=== PATIENT | female | born 1980 | race Asian ===

== ENCOUNTER → 2024-01-25 06:57 | Outpatient (REF) | payer BC, SELFPAY | LOC: RAD 06:57 | PROVIDERS: ATTENDING PHYSICIAN Surgery; FAMILY PHYSICIAN Family Medicine | DX: C18.7 Malignant neoplasm of sigmoid colon (principal) | CPT/HCPCS: 71260; 74177; Q9967 ==

== ENCOUNTER → 2024-01-31 15:05 | Outpatient (REF) | payer BC, SELFPAY | LOC: CLAB 15:05 | PROVIDERS: ATTENDING PHYSICIAN Surgery; FAMILY PHYSICIAN Family Medicine | DX: C18.7 Malignant neoplasm of sigmoid colon (principal) | CPT/HCPCS: 88305 ==

== ENCOUNTER 2024-02-09 06:05 | Inpatient (IN) | payer BC, SELFPAY ==
[2024-02-01 12:40] VITALS: BMI 26.7
[2024-02-02 08:59] LABS: Glycohemoglobin (HgbA1c) 5.3 % (4.0-5.6)
[2024-02-09] VITALS (10 sets, daily range): BP systolic 120–142; BP diastolic 71–90; BMI 26.7
[2024-02-09] MEDS: ENTEREG 12 MG PO (06:45)
[2024-02-09] MEDS: TYLENOL 1000 MG PO (06:45)
[2024-02-09] MEDS: HEPARIN 5000 UNITS SC (06:46)
[2024-02-09] MEDS: NORMOSOL-R 1000 IV ×3 (06:46→23:30)
--- NOTE | 2024-02-09 11:49 | W.IMMPOSTOP ---
Addendum entered and electronically signed by Farhad Torres MD 02/09/24 12:04:
KENYON Villegas, assisted
Original Note:
Surgical Immed Post Op Note
-
Primary Surgeon: Oscar Torres MD
Assistants: GEE Hdz & KENYON Mejia
Pre-op Diagnosis: Sigmoid colon cancer
Post-op Diagnosis: Same
Procedure Performed: Robotic sigmoid colon resection with intracorporeal anastomosis
Anesthesia Type: GET
Specimen / Cultures: Sigmoid colon (suture is proximal)
Estimated Blood Loss: 15cc
Complications: None
Operative Findings: No evidence of metastatic disease
Bulky tumor of the sigmoid colon at the Carbon ink
28mm EEA
normal leak test
Patient's updated.
Colon Resection
Colon Resection
Operation performed with curative intent: Yes
Tumor Location: Sigmoid Colon
Sigmoid Resection: Inferior Mesenteric
[2024-02-09] MEDS: DILAUDID 0.25 MG IV (12:28)
[2024-02-09 13:08] LABS: % Basophils 0.1 % (0-2); % Eosinophils 0.1 % (0-6); % Immature Granulocytes 0.5 % (0-0.5); % Lymphocytes 5.2 % (20.5-51.1); % Monocytes 0.8 % (1.7-9.3); % Neutrophils 93.3 % (42.2-75.2); Absolute Immature Granulocytes 0.1 10^3/uL (0-0.05); Absolute Lymphocytes 0.8 10^3/uL (1.2-3.4); Absolute Monocytes 0.1 10^3/uL (0.1-0.6); Absolute Neutrophils 13.5 10^3/uL (1.4-6.5); Hematocrit 40.6 % (37.0-47.0); Hemoglobin 13.2 g/dL (12.0-16.0); Mean Corp Hgb Conc. 32.5 g/dL (33.0-37.0); Nucleated Red Blood Cells % 0 %; Platelet Count 242 10^3/uL (130-400); Red Blood Cell Count 5.49 10^6/uL (4.20-5.40); Red Cell Dist. Width 14.1 % (11.5-14.5); White Blood Cell Count 14.4 10^3/uL (4.8-10.8)
--- NOTE | 2024-02-09 13:12 | PTCARENOTE ---
Patient admitted from [facility] post sigmoid colectomy secondary to colon cancer.The patient is alert and oriented.She rates her pain at a 4 out of 10All 4 incisions are clean and dry without drainage.The patient is in her bed with the call nair in
reach.Vital signs are stable.
[2024-02-09 13:20] LABS: Blood Urea Nitrogen 6 mg/dl (7-17); Calcium 8.4 mg/dl (8.4-10.2); Carbon Dioxide 22 mmol/L (22-30); Chloride 105 mmol/L (98-107); Estimated Creatinine Clearance 111 ml/min; Glucose 122 mg/dl (70-99); Potassium 4.4 mmol/L (3.5-5.1); Sodium 133 mmol/L (135-145); eGFR > 60.00
[2024-02-09] MEDS: TORADOL 15 MG IV ×2 (14:31→21:05)
[2024-02-09] MEDS: TYLENOL 650 MG PO ×2 (14:31→21:06)
[2024-02-09] MEDS: TYLENOL PO ×2 (15:26→23:30)
[2024-02-10] MEDS: TYLENOL 650 MG PO ×4 (02:48→16:28)
[2024-02-10] MEDS: TORADOL 15 MG IV ×3 (02:49→16:29)
[2024-02-10 02:55] VITALS: BP 108/68
[2024-02-10 06:00] VITALS: BMI 26.5
[2024-02-10 07:06] VITALS: BP 119/76
[2024-02-10 07:16] LABS: % Basophils 0.1 % (0-2); % Immature Granulocytes 0.6 % (0-0.5); % Lymphocytes 14.6 % (20.5-51.1); % Monocytes 6.9 % (1.7-9.3); % Neutrophils 77.8 % (42.2-75.2); Absolute Immature Granulocytes 0.1 10^3/uL (0-0.05); Absolute Lymphocytes 2.1 10^3/uL (1.2-3.4); Absolute Neutrophils 10.9 10^3/uL (1.4-6.5); Hematocrit 34.8 % (37.0-47.0); Hemoglobin 11.5 g/dL (12.0-16.0); Mean Corpuscular Hgb 24.5 pg (27.0-31.0); Mean Platelet Volume 10.3 fL (7.4-10.4); Nucleated Red Blood Cells % 0 %; Platelet Count 228 10^3/uL (130-400); Red Cell Dist. Width 14.1 % (11.5-14.5); White Blood Cell Count 14.1 10^3/uL (4.8-10.8)
[2024-02-10 07:34] LABS: Blood Urea Nitrogen 5 mg/dl (7-17); Calcium 8.5 mg/dl (8.4-10.2); Carbon Dioxide 26 mmol/L (22-30); Chloride 104 mmol/L (98-107); Estimated Creatinine Clearance 111 ml/min; Glucose 106 mg/dl (70-99); Potassium 4.4 mmol/L (3.5-5.1); Sodium 133 mmol/L (135-145); eGFR > 60.00
[2024-02-10] MEDS: ENTEREG 12 MG PO (09:30)
[2024-02-10] MEDS: PROTONIX 40 MG PO (09:31)
[2024-02-10] MEDS: NORMOSOL-R IV (09:37)
--- NOTE | 2024-02-10 10:56 | W.PN.CRS1 ---
Today's Communication / Plan
-
Advance diet
D/C polanco
Dispo planning
Assessment/Plan
-
43 y/o female with h/o sigmoid colon ca now POD #1 Robotic sigmoid colon resection with intracorporeal anastomosis
AFVSS
Mild acute anemia likely secondary to expected intraop losses and hemodilution
+Flatus, tolerating clears
--Advance to LRD
--D/C polanco for voiding trial
--Stop IVF
--Lovenox for VTE ppx, SCD's while in bed
--OOB/Ambulate
--Multimodal analgesics
--OR path pending
Discharge later today vs tomorrow pending voiding trial/diet tolerance/pain control
Subjective Data
Procedure
02/09/24 Robotic sigmoid colon resection with intracorporeal anastomosis
Subjective Data
Date of Service: February 10, 2024
Patient seen and examined at bedside with Dr. Torres. Denies n/v. Tolerating clears. Passing flatus. Pain well managed, some soreness to lower abdominal incision.
Objective Data
-
Vital Signs
Temp Pulse Resp BP Pulse Ox
98.5 F 75 18 119/76 99
02/10/24 07:06 02/10/24 07:06 02/10/24 07:06 02/10/24 07:06 02/10/24 07:06
Intake & Output
02/09/24 02/10/24 02/11/24
06:59 06:59 06:59
Intake Total 3080 / 3080
Output Total 2370 / 2370 800 / 800
Balance 710 / 710 -800 / -800
Intake:
Oral fluids 2380 / 2380
IV fluids (Total) 700 / 700
Normosol-R 1,000 ml @ 100 mls/ 50 / 50
hr IV .Q10H KARL Rx#:[id number]
norm 50 / 50
Output:
Urine, Polanco 2370 / 2370 800 / 800
Lab Results
02/10/24 06:44
02/10/24 06:44
Physical Exam
-
General: No Acute Distress
HEENT: Grossly Normal
Abdomen: Soft, Non Distended and Tender (mild to lower incision)
Skin: Warm and Dry
Incision: Clear, Dry, Intact and No Skin Erythema
[2024-02-10 11:29] VITALS: BP 110/74
--- NOTE | 2024-02-10 13:07 | CM ---
Reviewed the chart notes and spoke with the patient at the bedside. The patient resides with her spouse in a two story home with two steps to enter. The patient reports no DME/VN/SNF in the past. The patient confirmed her pharmacy of choice is
the [facility]. The patient anticipates being discharged to home with no needs. The patient's spouse will provide transportation. CM continues to be available to patient/family and is monitoring medical plan for needs at discharge.
Plan: Discharge to home when medically stable.
--- NOTE | 2024-02-10 15:10 | W.DCSUMMARY ---
Discharge Summary
Discharge Data
Date of Admission: 02/09/24
Date of Discharge: 02/10/24
-
Pending Results: No
Hospital Course
This is a 43 yo female with history of sigmoid colon cancer who presented for robotic sigmoid colectomy with intracorporeal anastomosis. She tolerated the procedure well without complication. Diet was able to be advanced post operatively with good
bowel function. Pain was well managed prior to discharge. Surgical pathology is pending with outpatient follow up planned to discuss.
Discharge Plan
-
Patient Disposition: Home (Routine Discharge)
Discharge Diagnosis/Procedures: Robotic sigmoidectomy
Condition: Good
Diet: Low Residue
Activity: No strenuous activity
Additional Activity: No lifting over 10lbs (gallon of milk)
Driving Restrictions: No driving for 1 week
Bathing Restrictions: OK to Shower
Wound Care: Allow glue to naturally fall off. Do not pick at incisions.
Activity Restrictions/Additional Instructions:
Call your surgeon if you develop worsening pain, nausea with vomiting or a fever 100.5
Instructions: Low Fiber Diet
Referrals:
Farhad Torres MD [Active] - 03/01/24 1:00 pm
Edel Jansen MD [Family Provider] -
Prescriptions:
New
acetaminophen 325 mg tablet
650 mg PO Q4HPRN PRN (Reason: mild pain) Qty: 1 0RF
ibuprofen 200 mg tablet
400 - 600 mg PO Q6HPRN PRN (Reason: moderate pain) Qty: 1 0RF
tramadol 50 mg tablet
25 - 50 mg PO Q6HPRN PRN (Reason: severe pain/breakthrough pain) Qty: 15 0RF
Discontinued
metronidazole 500 mg Tablet
500 mg PO .[id number]
Rx Instructions:
Bowel prep
magnesium citrate Solution
150 ml PO DIRECTED
Rx Instructions:
Drink on 02/07/24 for bowel prep
neomycin 500 mg Tablet
1,000 mg PO .[id number]
Rx Instructions:
Bowel prep
Sutab 1.479-0.188- 0.225 gram Tablet
24 tab PO DIRECTED
Rx Instructions:
As directed for bowel prep on 02/08/24
Discharge Orders:
Discharge Patient (As Directed); Ordered 02/10/24
Ordered By: Estrella Alaniz
Discharge Date and Time
Print Language: HAITIAN
[2024-02-10 15:35] VITALS: BP 137/78
== END 2024-02-10 16:46 | disposition home or self-care (01) | DRG 330 ==
LOC: 2 SOUTH 06:05
PROVIDERS: Physician Assistant; ADMITTING PHYSICIAN Surgery; FAMILY PHYSICIAN Family Medicine
PROC: 0DJD8ZZ Inspection of Lower Intestinal Tract, Via Natural or Artificial Opening Endoscopic (ICD-10-PCS; 2024-02-09)
PROC: 4A1BXSH Monitoring of Gastrointestinal Vascular Perfusion using Indocyanine Green Dye, External Approach (ICD-10-PCS; 2024-02-09)
PROC: 8E0W4CZ Robotic Assisted Procedure of Trunk Region, Percutaneous Endoscopic Approach (ICD-10-PCS; 2024-02-09)
PROC: 0DTN4ZZ Resection of Sigmoid Colon, Percutaneous Endoscopic Approach (ICD-10-PCS; 2024-02-09)
DX: C18.7 Malignant neoplasm of sigmoid colon (principal); D62 Acute posthemorrhagic anemia; N73.6 Female pelvic peritoneal adhesions (postinfective); Z80.52 Family history of malignant neoplasm of bladder; Z80.9 Family history of malignant neoplasm, unspecified; Z82.49 Family history of ischemic heart disease and other diseases of the circulatory system
CPT/HCPCS: 88309; 36415; 80048; 83036; 85025; 86850; 86900; 86901; 88342; 93005; J1335

== ENCOUNTER 2024-03-21 06:22 | Day surgery (SDC) | payer BC, SELFPAY ==
[2024-03-21 06:50] VITALS: BMI 26.0
[2024-03-21 06:51] VITALS: BMI 26.0
[2024-03-21 06:52] VITALS: BP 131/83
[2024-03-21] MEDS: NORMOSOL-R 1000 IV (06:55)
[2024-03-21] MEDS: TYLENOL 1000 MG PO (06:57)
[2024-03-21 08:29] VITALS: BP 117/63
[2024-03-21 08:45] VITALS: BP 123/48
[2024-03-21 09:00] VITALS: BP 120/57
[2024-03-21 09:15] VITALS: BP 119/87
[2024-03-21 09:30] VITALS: BP 125/66
== END 2024-03-21 09:40 | disposition home or self-care (01) ==
LOC: SDS 06:22
PROVIDERS: ATTENDING PHYSICIAN Surgery
DX: C18.9 Malignant neoplasm of colon, unspecified (principal)
CPT/HCPCS: 36561; 71045; 76000; C1788

== ENCOUNTER → 2024-05-03 10:48 | Outpatient (REF) | payer BC, SELFPAY | LOC: WDC 10:48 | PROVIDERS: ATTENDING PHYSICIAN Advanced Practice Midwife; FAMILY PHYSICIAN Family Medicine | DX: Z12.31 Encounter for screening mammogram for malignant neoplasm of breast (principal) | CPT/HCPCS: 77063; 77067 ==

== ENCOUNTER → 2024-06-24 13:12 | Outpatient (REF) | payer BC, SELFPAY | LOC: HWRAD 13:12 | PROVIDERS: ATTENDING PHYSICIAN Nurse Practitioner Primary Care; FAMILY PHYSICIAN Family Medicine | DX: C18.7 Malignant neoplasm of sigmoid colon (principal); G62.0 Drug-induced polyneuropathy | CPT/HCPCS: 71260; 74177; Q9967 ==

== ENCOUNTER → 2024-07-08 09:17 | Outpatient (REF) | payer BC, SELFPAY ==
[2024-07-08 10:00] VITALS: BP 118/92; BP_SYST 79
[2024-07-08 10:11] VITALS: BMI 27.6
== END ==
LOC: RADI 09:17
PROVIDERS: ATTENDING PHYSICIAN Nurse Practitioner Primary Care; FAMILY PHYSICIAN Family Medicine; REFERRING PHYSICIAN Internal Medicine Hematology & Oncology
DX: T82.524A Displacement of infusion catheter, initial encounter (principal); C18.7 Malignant neoplasm of sigmoid colon; Y82.8 Other medical devices associated with adverse incidents
CPT/HCPCS: 36598

== ENCOUNTER → 2024-07-16 09:38 | Outpatient (REF) | payer BC, SELFPAY ==
[2024-07-16 09:41] VITALS: BP 119/93; BP_SYST 70
[2024-07-16 10:19] VITALS: BMI 28.9
[2024-07-16] MEDS: ANCEF 10 IV (10:45)
[2024-07-16 12:06] VITALS: BP 128/93; BP_SYST 74
== END ==
LOC: RADI 09:38
PROVIDERS: ATTENDING PHYSICIAN Nurse Practitioner Primary Care
DX: T82.524A Displacement of infusion catheter, initial encounter (principal); Y82.8 Other medical devices associated with adverse incidents; C18.7 Malignant neoplasm of sigmoid colon
CPT/HCPCS: 36561; 36590; 76937; 77001; 99152; 99153; C1788

== ENCOUNTER → 2024-10-11 07:41 | Outpatient (REF) | payer BC, SELFPAY | LOC: PET 07:41 | PROVIDERS: ATTENDING PHYSICIAN Internal Medicine Hematology & Oncology | DX: C18.7 Malignant neoplasm of sigmoid colon (principal) | CPT/HCPCS: 78815; A9552 ==

== ENCOUNTER → 2025-03-19 15:08 | Outpatient (REF) | payer BC, SELFPAY ==
[2025-03-19 17:09] LABS: CEA 1.07 ng/ml
== END ==
LOC: REG 15:08
PROVIDERS: ATTENDING PHYSICIAN Internal Medicine Hematology & Oncology; FAMILY PHYSICIAN Family Medicine
DX: C18.7 Malignant neoplasm of sigmoid colon (principal); G62.0 Drug-induced polyneuropathy
CPT/HCPCS: 36415; 82378

== ENCOUNTER → 2025-03-28 12:02 | Outpatient (REF) | payer BC, SELFPAY | LOC: RAD 12:02 | PROVIDERS: ATTENDING PHYSICIAN Internal Medicine Hematology & Oncology; FAMILY PHYSICIAN Family Medicine | DX: C18.7 Malignant neoplasm of sigmoid colon (principal); G62.0 Drug-induced polyneuropathy | CPT/HCPCS: 71260; 74177; Q9967 ==

== ENCOUNTER → 2025-05-07 12:05 | Outpatient (REF) | payer BC, SELFPAY ==
[2025-05-07 12:53] VITALS: BP 124/85; BP_SYST 86
== END ==
LOC: RADI 12:05
PROVIDERS: ATTENDING PHYSICIAN Internal Medicine Hematology & Oncology; FAMILY PHYSICIAN Family Medicine
DX: Z45.2 Encounter for adjustment and management of vascular access device (principal); Z85.038 Personal history of other malignant neoplasm of large intestine
CPT/HCPCS: 36590; 77001